=== PATIENT | male | born 1990 | race Caucasian/White ===

== ENCOUNTER 2023-03-05 07:34 | Emergency (ER) | payer OTHER ==
[2023-03-05 07:49] VITALS: TEMP 96.2
[2023-03-05] MEDS ORDERED: Sodium Chloride 0.9% 1000 ML 1,000 ML IV STA ×3 (08:12→10:56)
[2023-03-05] MEDS ORDERED: Zofran 4 MG/2 ML VIAL IV ONE (08:14)
[2023-03-05] MEDS ORDERED: Sodium Chloride 0.9% 1000 ML 1,000 ML ONE ×3 (08:17→10:55)
[2023-03-05] MEDS ORDERED: Zofran 4 MG/2 ML VIAL ONE (08:17)
--- NOTE | 2023-03-05 08:21 | ERPHSYRPT ---
- History of Present Illness Time Seen by Provider: 03/05/23 08:00 Source: patient Patient Subjective Stated Complaint: Pt states " I feel like crap. I am weak, I feel nauseus and I feel like I am on fire." Triage Nursing Assessment: Pt presented alert and oriented X 3, skin pwd. Pt ambulates with an upright steady gait. Pt arrived with an emesis bag with vomit in it. Pt in no apparent respiratory distress. Physician History: Patient is a 32-year-old male no significant past medical history presents to our ED for evaluation of nausea vomiting generalized weakness body aches that started approximately 2 days ago. Symptoms have been progressive. Symptoms are moderate in intensity. No specific worsening or improving factors. No associ ated pain. No obvious sick contacts. Patient up-to-date with all vaccinations. Patient voices no other complaints or concerns at this time. Portions of this note were created with voice recognition technology. There may be grammatical, spelling, punctuation or sound alike errors Timing/Duration: day(s) (2 days ago) Severity: moderate Modifying Factors: Improves With: nothing Associated Symptoms: nausea, loss of appetite, weakness, other (Generalized body aches), No abdominal pain, No shortness of breath, No rash Allergies/Adverse Reactions: ethinyl estradiol [From [facility] ()] Allergy (Verified 03/05/23 07:49) levonorgestrel [From [facility] ()] Allergy (Verified 03/05/23 07:49) Home Medications: Omeprazole 20 mg PO DAILY 03/05/23 [History] Sertraline HCl 50 mg [Zoloft 50 mg Tablet] 100 mg PO DAILY 03/05/23 [His tory] Hx Tetanus, Diphtheria Vaccination/Date Given: No Hx Influenza Vaccination/Date Given: No Hx Pneumococcal Vaccination/Date Given: No Immunizations Up to Date: No Travel Risk - International Travel Have you traveled outside of the country in past 3 weeks: No - Coronavirus Screening Are you exhibiting any of the following symptoms?: Yes Symptoms: Fever, Vomiting/Diarrhea, Headaches/Body Aches/Fatigue - Vaccine Status Have you recieved a Covid-19 vaccination: Yes 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 - Vaccination Dates Dates if Unknown: 2020 - Review of Systems Constitutional: No Symptoms, No Fever, No Chills Eyes: No Symptoms Ears, Nose, & Throat: No Symptoms Respiratory: No Symptoms, No Cough, No Dyspnea Cardiac: No Symptoms, No Chest Pain, No Edema, No Syncope Abdominal/Gastrointestinal: No Symptoms, No Abdominal Pain, No Nausea, No Vomiting, No Diarrhea Genitourinary Symptoms: No Symptoms, No Dysuria Musculoskeletal: No Symptoms, No Back Pain, No Neck Pain Skin: No Symptoms, No Rash Neurological: No Symptoms, No Dizziness, No Focal Weakness, No Sensory Changes Psychological: No Symptoms Endocrine: No Symptoms Hematologic/Lymphatic: No Symptoms Immunological/Allergic: No Symptoms All Other Systems: Reviewed and Negative - Past Medical History Pertinent Past Medical History: Yes GI Medical History: GERD Psycho-Social History: Depression, Other Other Medical History: PTSD - Past Surgical History Past Surgical History: No - Social History Smoking Status: Never smoker Exposure to second hand smoke: Yes Drug Use: none Patient Lives Alone: No - Nursing Vital Signs Nursing Vital Signs: Initial Vital Signs Temperature 96.2 F 03/05/23 07:42 Pulse Rate 124 H 03/05/23 07:42 Respiratory Rate 24 03/05/23 07:42 Blood Pressure 125/68 03/05/23 07:42 O2 Sat by Pulse Oximetry 95 03/05/23 07:42 Pain Scale Pain Intensity 0 - Physical Exam General Appearance: no apparent distress, alert Eye Exam: PERRL/EOMI, eyes nml inspection Ears, Nose, Throat Exam: normal ENT inspection, TMs normal, pharynx normal, moist mucous membranes Neck Exam: normal inspection, non-tender, supple, full range of motion Respiratory Exam: normal breath sounds, lungs clear, airway intact, No respiratory distress Cardiovascular Exam: regular rate/rhythm, normal heart sounds, normal peripheral pulses Gastrointestinal/Abdomen Exam: soft, normal bowel sounds, No tenderness, No mass Back Exam: normal inspection, normal range of motion, No CVA tenderness, No vertebral tenderness Extremity Exam: normal inspection, normal range of motion, pelvis stable Neurologic Exam: alert, oriented x 3, cooperative, normal mood/affect, nml c erebellar function, nml station & gait, sensation nml, No motor deficits Skin Exam: normal color, warm, dry, No rash Lymphatic Exam: No adenopathy SpO2 Interpretation: normal SpO2: 98 O2 Delivery: Room Air - Course Nursing assessment & vital signs reviewed: Yes EKG Interpreted by Me: RATE (120), Sinus Tach, NORMAL AXIS, prolonged QT interval (Borderline prolonged QT interval) - Radiology Exams Chest X-ray Interpretation: Teleradiologist Report (Chronic findings. No acute features) Ordered Tests: Active Orders 24 hr Category Date Time Status Plastics And Composites Inspector STAT Care 03/05/23 08:13 Active Clean Catch Urine Specimen STAT Care 03/05/23 14:21 Active EKG-ER Only STAT Care 03/05/23 08:12 Active IV Insertion STAT Care 03/05/23 08:12 Active Pulse Oximetry (ED) STAT Care 03/05/23 08:12 Active CHEST 1 VIEW (PORTABLE) Stat Exams 03/05/23 13:43 Completed BLOOD CULTURE Stat Lab 03/05/23 13:21 Received CBC W DIFF Stat Lab 03/05/23 08:50 Completed CMP Stat Lab 03/05/23 08:40 Completed CMP Stat Lab 03/05/23 14:35 Completed CULTURE,URINE Stat Lab 03/05/23 12:31 Received D-DIMER QUANTITATIVE Stat Lab 03/05/23 13:01 Completed Lactic Acid Stat Lab 03/05/23 14:20 Completed Lactic Acid Stat Lab 03/05/23 15:53 Ordered MAGNESIUM Stat Lab 03/05/23 08:40 Completed TROPONIN Q4H Lab 03/05/23 08:40 Completed TROPONIN Q4H Lab 03/05/23 12:08 Completed TROPONIN Q4H Lab 03/05/23 16:15 Ordered UA W/RFX UR CULTURE Stat Lab 03/05/23 12:31 Completed Urine Triage Profile Stat Lab 03/05/23 12:31 Completed Medication Summary Discontinued Medications Generic Name Dose Route Start Last Admin Trade Name Bobbyq PRN Reason Stop Dose Admin Sodium Chloride 1,000 mls @ 999 mls/hr 03/05/23 08:12 03/05/23 09:23 Sodium Chloride 0.9% 1000 Ml IV 03/05/23 09:12 Infused .Q1H1M STA Infusion Sodium Chloride Confirm 03/05/23 08:17 Sodium Chloride 0.9% 1000 Ml Administered 03/05/23 08:18 Dose 1,000 mls @ ud .ROUTE .STK-MED ONE Sodium Chloride 1,000 mls @ 999 mls/hr 03/05/23 09:25 03/05/23 10:37 Sodium Chloride 0.9% 1000 Ml IV 03/05/23 10:25 Infused .Q1H1M STA Infusion Sodium Chloride Confirm 03/05/23 09:26 Sodium Chloride 0.9% 1000 Ml Administered 03/05/23 09:27 Dose 1,000 mls @ ud .ROUTE .STK-MED ONE Sodium Chloride Confirm 03/05/23 10:55 Sodium Chloride 0.9% 1000 Ml Administered 03/05/23 10:56 Dose 1,000 mls @ ud .ROUTE .STK-MED ONE Sodium Chloride 1,000 mls @ 999 mls/hr 03/05/23 10:56 03/05/23 12:09 Sodium Chloride 0.9% 1000 Ml IV 03/05/23 11:56 Infused .Q1H1M STA Infusion Ondansetron HCl 4 mg 03/05/23 08:14 03/05/23 08:18 Ondansetron Hcl 4 Mg/2 Ml Vial IV 03/05/23 08:15 4 mg STAT ONE Administration Ondansetron HCl Confirm 03/05/23 08:17 Ondansetron Hcl 4 Mg/2 Ml Vial Administered 03/05/23 08:18 Dose 4 mg .ROUTE .STK-MED ONE Lab/Rad Data: Laboratory Result Diagrams 03/05/23 08:50 03/05/23 14:35 Laboratory Results 03/05/23 03/05/23 03/05/23 Range/Units 14:35 14:20 13:01 WBC (4.0-10.5) x10^3/uL RBC (4.1-5.6) x10^6/uL Hgb (12.5-18.0) g/dL Hct (42-50) % MCV (78-100) fL MCH (26-32) pg MCHC (32-36) g/dL RDW (11.5-14.0) % Plt Count (150-450) x10^3/uL MPV (7.5-11.0) fL Gran % (36.0-66.0) % Immature Gran % (Auto) (0.00-0.4) % Nucleat RBC Rel Count (0.00-0.1) % Eos # (Auto) (0-0.5) x10^3/uL Immature Gran # (Auto) (0.00-0.03) x10^3u/L Absolute Lymphs (auto) (1.0-4.6) x10^3/uL Absolute Monos (auto) (0.0-1.3) x10^3/uL Absolute Nucleated RBC (0.00-0.01) x10^3u/L Lymphocytes % (24.0-44.0) % Monocytes % (0.0-12.0) % Eosinophils % (0.00-5.0) % Basophils % (0.0-0.4) % Absolute Granulocytes (1.4-6.9) x10^3/uL Basophils # (0-0.4) x10^3/uL D-Dimer 0.24 (0.0-0.50) mg/L Sodium 132 L (137-145) mmol/L Potassium 4.6 D (3.5-5.1) mmol/L Chloride 102 (98-107) mmol/L Carbon Dioxide 21 L (22-30) mmol/L Anion Gap 13.9 (5-15) MEQ/L BUN 16 (9-20) mg/dL Creatinine 0.81 (0.66-1.25) mg/dL Estimated GFR 120.9 ML/MIN Glucose 121 H (74-106) mg/dL Lactic Acid 7.2 H (0.4-2.0) Calcium 8.5 (8.4-10.2) mg/dL Magnesium (1.6-2.3) mg/dL Total Bilirubin 0.30 (0.2-1.3) mg/dL AST 22 (17-59) U/L ALT 18 (0-50) U/L Alkaline Phosphatase 64 (38-126) U/L Troponin I (0.000-0.034) ng/mL Serum Total Protein 6.9 (6.3-8.2) g/dL Albumin 3.9 (3.5-5.0) g/dL Urine Color (Yellow) Urine Appearance (Clear) Urine pH (4.6-8.0) Ur Specific [place] (1.005-1.030) Urine Protein (Negative) Urine Glucose (UA) (Negative) mg/dL Urine Ketones (Negative) Urine Blood (Negative) Urine Nitrite (Negative) Urine Bilirubin (Negative) Urine Urobilinogen (0.2) mg/dL Ur Leukocyte Esterase (Negative) U Hyaline Cast (Auto) (0-2) /LPF Urine Microscopic RBC (0-5) /HPF Urine Microscopic WBC (0-5) /HPF Ur Epithelial Cells (None Seen) /HPF Urine Bacteria (None Seen) /HPF Urine Culture Reflexed (NO) Urine Opiates Level (NEGATIVE) Ur Methadone (NEGATIVE) Urine Barbiturates (NEGATIVE) Ur Phencyclidine (PCP) (NEGATIVE) Urine Amphetamine (NEGATIVE) U Benzodiazepine Level (NEGATIVE) Urine Cocaine (NEGATIVE) Urine Marijuana (THC) (NEGATIVE) Influenza Type A Ag (NEGATIVE) Influenza Type B Ag (NEGATIVE) RSV (PCR) (NEGATIVE) SARS-CoV-2 (PCR) (NEGATIVE) 03/05/23 03/05/23 03/05/23 Range/Units 12:31 12:31 12:08 WBC (4.0-10.5) x10^3/uL RBC (4.1-5.6) x10^6/uL Hgb (12.5-18.0) g/dL Hct (42-50) % MCV (78-100) fL MCH (26-32) pg MCHC (32-36) g/dL RDW (11.5-14.0) % Plt Count (150-450) x10^3/uL MPV (7.5-11.0) fL Gran % (36.0-66.0) % Immature Gran % (Auto) (0.00-0.4) % Nucleat RBC Rel Count (0.00-0.1) % Eos # (Auto) (0-0.5) x10^3/uL Immature Gran # (Auto) (0.00-0.03) x10^3u/L Absolute Lymphs (auto) (1.0-4.6) x10^3/uL Absolute Monos (auto) (0.0-1.3) x10^3/uL Absolute Nucleated RBC (0.00-0.01) x10^3u/L Lymphocytes % (24.0-44.0) % Monocytes % (0.0-12.0) % Eosinophils % (0.00-5.0) % Basophils % (0.0-0.4) % Absolute Granulocytes (1.4-6.9) x10^3/uL Basophils # (0-0.4) x10^3/uL D-Dimer (0.0-0.50) mg/L Sodium (137-145) mmol/L Potassium (3.5-5.1) mmol/L Chloride (98-107) mmol/L Carbon Dioxide (22-30) mmol/L Anion Gap (5-15) MEQ/L BUN (9-20) mg/dL Creatinine (0.66-1.25) mg/dL Estimated GFR ML/MIN Glucose (74-106) mg/dL Lactic Acid (0.4-2.0) Calcium (8.4-10.2) mg/dL Magnesium (1.6-2.3) mg/dL Total Bilirubin (0.2-1.3) mg/dL AST (17-59) U/L ALT (0-50) U/L Alkaline Phosphatase (38-126) U/L Troponin I < 0.012 (0.000-0.034) ng/mL Serum Total Protein (6.3-8.2) g/dL Albumin (3.5-5.0) g/dL Urine Color Yellow (Yellow) Urine Appearance Cloudy A (Clear) Urine pH 5.0 (4.6-8.0) Ur Specific [place] 1.025 (1.005-1.030) Urine Protein 30 (Negative) Urine Glucose (UA) Negative (Negative) mg/dL Urine Ketones Negative (Negative) Urine Blood Trace (Negative) Urine Nitrite Negative (Negative) Urine Bilirubin Negative (Negative) Urine Urobilinogen 0.2 (0.2) mg/dL Ur Leukocyte Esterase Negative (Negative) U Hyaline Cast (Auto) 0-2 (0-2) /LPF Urine Microscopic RBC 0-2 (0-5) /HPF Urine Microscopic WBC 3-5 (0-5) /HPF Ur Epithelial Cells Few (None Seen) /HPF Urine Bacteria Rare A (None Seen) /HPF Urine Culture Reflexed YES (NO) Urine Opiates Level NEGATIVE (NEGATIVE) Ur Methadone NEGATIVE (NEGATIVE) Urine Barbiturates NEGATIVE (NEGATIVE) Ur Phencyclidine (PCP) NEGATIVE (NEGATIVE) Urine Amphetamine NEGATIVE (NEGATIVE) U Benzodiazepine Level NEGATIVE (NEGATIVE) Urine Cocaine NEGATIVE (NEGATIVE) Urine Marijuana (THC) POSITIVE (NEGATIVE) Influenza Type A Ag (NEGATIVE) Influenza Type B Ag (NEGATIVE) RSV (PCR) (NEGATIVE) SARS-CoV-2 (PCR) (NEGATIVE) 11/11/1803/05/23 03/05/23 Range/Units 08:50 08:40 08:40 WBC 17.8 H (4.0-10.5) x10^3/uL RBC 4.29 (4.1-5.6) x10^6/uL Hgb 12.7 (12.5-18.0) g/dL Hct 39.3 L (42-50) % MCV 91.6 (78-100) fL MCH 29.6 (26-32) pg MCHC 32.3 (32-36) g/dL RDW 12.7 (11.5-14.0) % Plt Count 305 (150-450) x10^3/uL MPV 9.6 (7.5-11.0) fL Gran % 85.4 H (36.0-66.0) % Immature Gran % (Auto) 0.7 H (0.00-0.4) % Nucleat RBC Rel Count 0.0 (0.00-0.1) % Eos # (Auto) 0.02 (0-0.5) x10^3/uL Immature Gran # (Auto) 0.12 H (0.00-0.03) x10^3u/L Absolute Lymphs (auto) 1.38 (1.0-4.6) x10^3/uL Absolute Monos (auto) 1.01 (0.0-1.3) x10^3/uL Absolute Nucleated RBC 0.00 (0.00-0.01) x10^3u/L Lymphocytes % 7.8 L (24.0-44.0) % Monocytes % 5.7 (0.0-12.0) % Eosinophils % 0.1 (0.00-5.0) % Basophils % 0.3 (0.0-0.4) % Absolute Granulocytes 15.21 H (1.4-6.9) x10^3/uL Basophils # 0.05 (0-0.4) x10^3/uL D-Dimer (0.0-0.50) mg/L Sodium (137-145) mmol/L Potassium (3.5-5.1) mmol/L Chloride (98-107) mmol/L Carbon Dioxide (22-30) mmol/L Anion Gap (5-15) MEQ/L BUN (9-20) mg/dL Creatinine (0.66-1.25) mg/dL Estimated GFR ML/MIN Glucose (74-106) mg/dL Lactic Acid (0.4-2.0) Calcium (8.4-10.2) mg/dL Magnesium (1.6-2.3) mg/dL Total Bilirubin (0.2-1.3) mg/dL AST (17-59) U/L ALT (0-50) U/L Alkaline Phosphatase (38-126) U/L Troponin I < 0.012 (0.000-0.034) ng/mL Serum Total Protein (6.3-8.2) g/dL Albumin (3.5-5.0) g/dL Urine Color (Yellow) Urine Appearance (Clear) Urine pH (4.6-8.0) Ur Specific [place] (1.005-1.030) Urine Protein (Negative) Urine Glucose (UA) (Negative) mg/dL Urine Ketones (Negative) Urine Blood (Negative) Urine Nitrite (Negative) Urine Bilirubin (Negative) Urine Urobilinogen (0.2) mg/dL Ur Leukocyte Esterase (Negative) U Hyaline Cast (Auto) (0-2) /LPF Urine Microscopic RBC (0-5) /HPF Urine Microscopic WBC (0-5) /HPF Ur Epithelial Cells (None Seen) /HPF Urine Bacteria (None Seen) /HPF Urine Culture Reflexed (NO) Urine Opiates Level (NEGATIVE) Ur Methadone (NEGATIVE) Urine Barbiturates (NEGATIVE) Ur Phencyclidine (PCP) (NEGATIVE) Urine Amphetamine (NEGATIVE) U Benzodiazepine Level (NEGATIVE) Urine Cocaine (NEGATIVE) Urine Marijuana (THC) (NEGATIVE) Influenza Type A Ag NEGATIVE (NEGATIVE) Influenza Type B Ag NEGATIVE (NEGATIVE) RSV (PCR) NEGATIVE (NEGATIVE) SARS-CoV-2 (PCR) NEGATIVE (NEGATIVE) 03/05/23 Range/Units 08:40 WBC (4.0-10.5) x10^3/uL RBC (4.1-5.6) x10^6/uL Hgb (12.5-18.0) g/dL Hct (42-50) % MCV (78-100) fL MCH (26-32) pg MCHC (32-36) g/dL RDW (11.5-14.0) % Plt Count (150-450) x10^3/uL MPV (7.5-11.0) fL Gran % (36.0-66.0) % Immature Gran % (Auto) (0.00-0.4) % Nucleat RBC Rel Count (0.00-0.1) % Eos # (Auto) (0-0.5) x10^3/uL Immature Gran # (Auto) (0.00-0.03) x10^3u/L Absolute Lymphs (auto) (1.0-4.6) x10^3/uL Absolute Monos (auto) (0.0-1.3) x10^3/uL Absolute Nucleated RBC (0.00-0.01) x10^3u/L Lymphocytes % (24.0-44.0) % Monocytes % (0.0-12.0) % Eosinophils % (0.00-5.0) % Basophils % (0.0-0.4) % Absolute Granulocytes (1.4-6.9) x10^3/uL Basophils # (0-0.4) x10^3/uL D-Dimer (0.0-0.50) mg/L Sodium 134 L (137-145) mmol/L Potassium 3.5 (3.5-5.1) mmol/L Chloride 99 (98-107) mmol/L Carbon Dioxide 17 L (22-30) mmol/L Anion Gap 21.7 H (5-15) MEQ/L BUN 19 (9-20) mg/dL Creatinine 1.03 (0.66-1.25) mg/dL Estimated GFR 99.6 ML/MIN Glucose 215 H (74-106) mg/dL Lactic Acid (0.4-2.0) Calcium 9.3 (8.4-10.2) mg/dL Magnesium 1.9 (1.6-2.3) mg/dL Total Bilirubin 0.50 (0.2-1.3) mg/dL AST 21 (17-59) U/L ALT 22 (0-50) U/L Alkaline Phosphatase 85 (38-126) U/L Troponin I (0.000-0.034) ng/mL Serum Total Protein 8.1 (6.3-8.2) g/dL Albumin 4.6 (3.5-5.0) g/dL Urine Color (Yellow) Urine Appearance (Clear) Urine pH (4.6-8.0) Ur Specific [place] (1.005-1.030) Urine Protein (Negative) Urine Glucose (UA) (Negative) mg/dL Urine Ketones (Negative) Urine Blood (Negative) Urine Nitrite (Negative) Urine Bilirubin (Negative) Urine Urobilinogen (0.2) mg/dL Ur Leukocyte Esterase (Negative) U Hyaline Cast (Auto) (0-2) /LPF Urine Microscopic RBC (0-5) /HPF Urine Microscopic WBC (0-5) /HPF Ur Epithelial Cells (None Seen) /HPF Urine Bacteria (None Seen) /HPF Urine Culture Reflexed (NO) Urine Opiates Level (NEGATIVE) Ur Methadone (NEGATIVE) Urine Barbiturates (NEGATIVE) Ur Phencyclidine (PCP) (NEGATIVE) Urine Amphetamine (NEGATIVE) U Benzodiazepine Level (NEGATIVE) Urine Cocaine (NEGATIVE) Urine Marijuana (THC) (NEGATIVE) Influenza Type A Ag (NEGATIVE) Influenza Type B Ag (NEGATIVE) RSV (PCR) (NEGATIVE) SARS-CoV-2 (PCR) (NEGATIVE) - Progress Progress: improved Progress Note: Patient is a six 32-year-old male presents to our ED for evaluation of nausea vomiting generalized body aches. Symptoms started approximately 2 to 3 days ago. Physical exam otherwise unremarkable. EKG was sinus tachycardia. Chest x-ray such and unremarkable. No acute findings. CBC reveals leukocytosis of 17.8. No clear origin for the chest pain. No fever. We obtained cultures to further look into this leukocytosis versus being infectious or reactive. Blood culture pending. CMP repeated. Anion gap normalized. COVID testing negative. D-dimer negative. Lactic acid ordered. Initial lactic acid blood sample was old. They repeated it with a fresh sample and lactic acid revealed to be normal. [place]nes[place] 1.9. Troponin negative. Urinalysis negative for urinary tract infection. Urine triage positive for marijuana use. Patient received 3 L normal saline and Zofran. Patient reassessed. He is feeling well. Patient sitting up conversant well-appearing no distress. Patient eating food and stating he is ready for discharge. Patient was tachycardic in the high 120s upo n arrival. Heart rate down to 108. No indication for further work-up at this time. Will discharge home. Vital stable. Portions of this note were created with voice recognition technology. There may be grammatical, spelling, punctuation or sound alike errors Complexity of problems addressed is moderate acute complicated No critical care time Complex of data reviewed and analyzed is moderate. Test ordered test reviewed. Results analyzed and clinically correlated with history and physical exam. Risk of complication and a risk of morbidity/mortality of patient management is moderate. Patient be discharged home. Vital stable. Time spent to discharge patient approximately 20 minutes. Plan of care established for shared decision making. No social determinants of health present impede follow-up. Portions of this note were created with voice recognition technology. There may be grammatical, spelling, punctuation or sound alike errors 03/05/23 15:56 Counseled pt/family regarding: lab results, diagnosis, need for follow-up, rad results - Departure Departure Disposition: Home Clinical Impression: Generalized weakness, Nausea & vomiting, Dehydration, Sinus tachycardia Condition: Stable Critical Care Time: No Referrals: GARRETT GOODSON DO [Primary Care Provider] - Follow up/PCP as directed Additional Instructions: Discharge/Care Plan SALLY ALEGRIA JOHNNY was seen on 03/05/23 in the Emergency Room. The patient was counseled regarding Diagnosis,Lab results, Imaging studies, need for follow up and when to return to the Emergency Room. Prescriptions given: Discharge Note I have spoken with the patient and/or caregivers. I have explained the patient's condition, diagnosis and treatment plan based on the information available to me at this time. I have answered the patient's and/or caregiver's questions and addressed any concerns. The patient and/or caregivers have as good understanding of the patient's diagnosis, condition and treatment plan as can be expected at this point. The vital signs have been stable. The patient's condition is stable and appropriate for discharge from the emergency department. The patient will pursue further outpatient evaluation with the primary care physician or other designated or consulting physician as outlined in the discharge instructions. The patient and/or caregivers are agreeable to this plan of care and follow-up instructions have been explained in detail. The patient and/or caregivers have received these instruction. The patient/and or caregivers are aware that any significant change in condition or worsening of symptoms should prompt an immediate return to this or the closest emergency department or call 911.
[2023-03-05 08:56] LABS: Absolute Neutrophil Ct (ANC) 15.21 x10^3/uL (1.4-6.9); BASOPHIL % 0.3 % (0.0-0.4); Basophil (Absolute #) 0.05 x10^3/uL (0-0.4); Eosinophil % 0.1 % (0.00-5.0); Eosinophil (Absolute #) 0.02 x10^3/uL (0-0.5); Hematocrit 39.3 % (42-50); Hemoglobin 12.7 g/dL (12.5-18.0); IMMATURE GRAN # 0.12 x10^3u/L (0.00-0.03); IMMATURE GRAN % 0.7 % (0.00-0.4); Lymphocyte (Absolute #) 1.38 x10^3/uL (1.0-4.6); Lymphocytes % 7.8 % (24.0-44.0); Mean Cell Volume 91.6 fL (78-100); Mean Corpuscular Hemoglobin 29.6 pg (26-32); Mean Corpuscular Hgb Concent. 32.3 g/dL (32-36); Mean Platelet Volume 9.6 fL (7.5-11.0); Monocyte (Absolute #) 1.01 x10^3/uL (0.0-1.3); Monocytes % 5.7 % (0.0-12.0); Neutrophil % 85.4 % (36.0-66.0); Platelet Count 305 x10^3/uL (150-450); Red Blood Count 4.29 x10^6/uL (4.1-5.6); Red Cell Distribution Width 12.7 % (11.5-14.0); White Blood Count 17.8 x10^3/uL (4.0-10.5)
[2023-03-05 08:57] LABS: ALBUMIN 4.6 g/dL (3.5-5.0); ANION GAP 21.7 MEQ/L (5-15); BILIRUBIN,TOTAL 0.5 mg/dL (0.2-1.3); Calcium 9.3 mg/dL (8.4-10.2); Creatinine 1 1.03 mg/dL (0.66-1.25); EST GLOMERULAR FILTRATION RATE 99.6 ML/MIN; MAGNESIUM 1.9 mg/dL (1.6-2.3); Potassium 3.5 mmol/L (3.5-5.1); Total Protein 8.1 g/dL (6.3-8.2)
[2023-03-05 09:22] LABS: INFLUENZA A NEGATIVE (NEGATIVE); INFLUENZA B NEGATIVE (NEGATIVE); RESPIRATORY SYNCTIAL VIRUS NEGATIVE (NEGATIVE); SARS-CoV-2 Xpert Express NEGATIVE (NEGATIVE)
[2023-03-05 12:52] LABS: Appearance Cloudy (Clear); Bilirubin Negative (Negative); Blood Trace (Negative); Epithelial Cells Few /HPF (None Seen); Glucose, Urine Negative (Negative); Ketones Negative (Negative); Leukocyte Esterase Negative (Negative); Nitrite Negative (Negative); Protein,Urine Dip 30 (Negative); RBC 0-2 /HPF (0-5); Specific Gravity 1.025 (1.005-1.030); Urobilinogen 0.2 mg/dL (0.2)
[2023-03-05 12:53] LABS: ADD URINE CULTURE? YES (NO); Bacteria Rare /HPF (None Seen); Hyaline Casts 0-2 /LPF (0-2)
--- NOTE | 2023-03-05 14:16 | XRAY ---
Indication: Tachycardia. Comparison: None Portable chest demonstrates minimal left base subsegmental atelectasis/scarring. Remaining heart and lungs unremarkable. Bony thorax intact.
[2023-03-05 14:45] LABS: Amphetamine,Urine NEGATIVE (NEGATIVE); Barbiturate,Urine NEGATIVE (NEGATIVE); Benzodiazepine,Urine NEGATIVE (NEGATIVE); Cocaine,Urine NEGATIVE (NEGATIVE); Methadone,Urine NEGATIVE (NEGATIVE); Opiate,Urine NEGATIVE (NEGATIVE); PCP,Urine NEGATIVE (NEGATIVE); THC,Urine POSITIVE (NEGATIVE)
[2023-03-05 14:58] LABS: ALBUMIN 3.9 g/dL (3.5-5.0); ANION GAP 13.9 MEQ/L (5-15); BILIRUBIN,TOTAL 0.3 mg/dL (0.2-1.3); Calcium 8.5 mg/dL (8.4-10.2); Creatinine 1 0.81 mg/dL (0.66-1.25); EST GLOMERULAR FILTRATION RATE 120.9 ML/MIN; Total Protein 6.9 g/dL (6.3-8.2)
[2023-03-05 15:00] LABS: Potassium 4.6 mmol/L (3.5-5.1)
[2023-03-05 15:37] VITALS: O2SAT 98
[2023-03-05 15:53] VITALS: BP 118/72; PULSE 117; RESP 25
== END 2023-03-05 16:09 | disposition home or self-care (01) ==
LOC: ED 07:34
DX: R53.1 Weakness (principal); R11.2 Nausea with vomiting, unspecified; E86.0 Dehydration; R00.0 Tachycardia, unspecified; M79.10 Myalgia, unspecified site; Z79.899 Other long term (current) drug therapy
CPT/HCPCS: 0241U; 36000; 36415; 71045; 80053; 80307; 81001; 83605; 83735; 84484; 85025; 85379; 87040; 87086; 93005; 93041; 94760; 96360; 96361; 96374; 99285; J2405

== ENCOUNTER 2024-02-10 04:24 | Emergency (ER) | payer OTHER ==
[2024-02-10 04:39] VITALS: TEMP 97
--- NOTE | 2024-02-10 05:01 | ERPHSYRPT ---
- History of Present Illness Historian: patient, family Exam Limitations: no limitations Patient Subjective Stated Complaint: Left flank pain that started 3 hours ago. Nauseated since arrived to ED. Triage Nursing Assessment: Patient presents with left flank pain that started around 0130 today. Stated that he attempted to take 2 gas relief tabs and did not help. No trouble with urination. Denies any diarrhea or constipation. [place] nauseated once getting here to the ED. Timing/Duration: today Activities at Onset: none Quality: burning, cramping, pressure, sharpness Abdominal Pain Onset Location: LUQ, flank Pain Radiation: back Severity of Pain-Max: moderate Severity of Pain-Current: moderate Modifying Factors: Improves With: nothing Associated Symptoms: back, nausea Previous symptoms: no prior history Hx Tetanus, Diphtheria Vaccination/Date Given: Yes Hx Influenza Vaccination/Date Given: No Hx Pneumococcal Vaccination/Date Given: No Immunizations Up to Date: Yes <MATT DANIELSON - Last Filed: 02/10/24 06:33> <FLAKO LENTZ - Last Filed: 02/10/24 07:42> - History of Present Illness Time Seen by Provider: 02/10/24 04:52 Physician History: Pt noted onset of left flank pain radiating to back at 0130 today also with some nausea - no vomiting. He denies heart problems or prior episodes . Not short of breath but is post cpovid with a persisting cough. No prior DVT or PE and no recent hosp or surgeries. But does have some hormonal Tx. Discussed risks/benefits of testing /Tx including pain meds, IV, CBC, CMP, Lactate, Lipase, AMylase, UA, Trop EKG, CT, CXR, BNP , D DImer , And pt wishes to proceed with all except pain meds/IV. SO the rest are ordered. Results discussed chest clear Ht reg without M 'Normal mental status and neuro exam. Calves nontender without swelling or erythema no edema. Abd slightly tender LUQ/flank, otherwise nontender and no peritoneal signs or masses or distension. (MATT DANIELSON) Allergies/Adverse Reactions: ethinyl estradiol [From [facility] (91)] Allergy (Verified 03/05/23 07:49) levonorgestrel [From [facility] (91)] Allergy (Verified 03/05/23 07:49) Home Medications: Omeprazole 20 mg PO DAILY 03/05/23 [History] Sertraline HCl 50 mg [Zoloft 50 mg Tablet] 100 mg PO DAILY 03/05/23 [History] Atorvastatin Calcium [Lipitor 20MG Tablet] 20 mg PO HS 02/10/24 [History] Spironolactone [Aldactone] 50 mg PO BID 02/10/24 [History] estradioL [Estradiol] 4 mg PO BID 02/10/24 [History] Travel Risk - International Travel Have you traveled outside of the country in past 3 weeks: No - Emerging Infectious Disease Are you exhibiting symptoms associated with any current EIDs: No <MATT DANIELSON - Last Filed: 02/10/24 06:33> - Review of Systems Constitutional: No Fever, No Chills Eyes: No Symptoms Ears, Nose, & Throat: No Symptoms Respiratory: Cough, No Dyspnea Cardiac: No Chest Pain, No Edema, No Syncope Abdominal/Gastrointestinal: Nausea, No Abdominal Pain, No Vomiting, No Diarrhea Genitourinary Symptoms: Flank Pain, No Dysuria Musculoskeletal: No Back Pain, No Neck Pain Skin: No Rash Neurological: No Dizziness, No Focal Weakness, No Sensory Changes Psychological: No Symptoms Endocrine: No Symptoms Hematologic/Lymphatic: No Symptoms Immunological/Allergic: No Symptoms All Other Systems: Reviewed and Negative <MATT DANIELSON - Last Filed: 02/10/24 06:33> - Past Medical History Pertinent Past Medical History: Yes Respiratory History: Asthma GI Medical History: GERD Psycho-Social History: Depression, Other Other Medical History: PTSD - Past Surgical History Past Surgical History: No - Social History Smoking Status: Never smoker Exposure to second hand smoke: Yes Drug Use: other Patient Lives Alone: No - Social Determinants of Health Will the patient participate in the screening: Yes Do you worry about a steady place to live?: No Do you have any problems with any of the following?: No known problems In the past 12 months,have you had to go without utilities?: No Transportation Issues: Yes Has anyone in your support network made you feel unsafe?: No Have you or anyone in your house had to go without enough: No <MATT DANIELSON - Last Filed: 02/10/24 06:33> - Physical Exam General Appearance: no apparent distress, alert Eye Exam: PERRL/EOMI, eyes nml inspection Ears, Nose, Throat Exam: normal ENT inspection, pharynx normal, moist mucous membranes Neck Exam: normal inspection, non-tender, supple, full range of motion Respiratory Exam: normal breath sounds, lungs clear, No respiratory distress Cardiovascular Exam: regular rate/rhythm, normal heart sounds Gastrointestinal/Abdomen Exam: soft, No tenderness, No mass Rectal Exam: deferred Back Exam: normal inspection, normal range of motion, No CVA tenderness, No vertebral tenderness Extremity Exam: normal inspection, normal range of motion, pelvis stable Neurologic Exam: alert, oriented x 3, cooperative, normal mood/affect, nml cerebellar function, sensation nml, No motor deficits Skin Exam: normal color, warm, dry SpO2 Interpretation: normal SpO2: 98 O2 Delivery: Room Air <MATT DANIELSON - Last Filed: 02/10/24 06:33> - Nursing Vital Signs Nursing Vital Signs: Initial Vital Signs Temperature 97.0 F 02/10/24 04:25 Pulse Rate 94 H 02/10/24 04:25 Respiratory Rate 20 02/10/24 04:25 Blood Pressure 154/105 02/10/24 04:25 O2 Sat by Pulse Oximetry 98 02/10/24 04:25 Pain Scale Pain Intensity 6 - Course Nursing assessment & vital signs reviewed: Yes EKG Interpreted by Me: Sinus Rhythm, NORMAL AXIS, NORMAL INTERVALS, NORMAL QRS, NORMAL ST-T - Radiology Exams Chest X-ray Interpretation: Interpreted by me, No Pneumothorax, Infiltrates (bilateral interstitial SP COvid) <MATT DANIELSON - Last Filed: 02/10/24 06:33> Ordered Tests: Active Orders 24 hr Category Date Time Status EKG-ER Only STAT Care 02/10/24 05:01 Active Strain Urine .as ordered Care 02/10/24 06:54 Active ABDOMEN AND PELVIS W/0 CONTRAS [CT] Stat Exams 02/10/24 05:03 Completed CHEST 1 VIEW (PORTABLE) Stat Exams 02/10/24 05:02 Taken AMYLASE Stat Lab 02/10/24 05:30 Completed CBC W DIFF Stat Lab 02/10/24 05:30 Completed CMP Stat Lab 02/10/24 05:30 Completed CULTURE,URINE Stat Lab 02/10/24 05:02 Received D-DIMER QUANTITATIVE Stat Lab 02/10/24 05:30 Completed LIPASE Stat Lab 02/10/24 05:30 Completed Lactic Acid Stat Lab 02/10/24 05:27 Completed NT PRO BNPII Stat Lab 02/10/24 05:30 Completed TROPONIN Q4H Lab 02/10/24 05:30 Completed TROPONIN Q4H Lab 02/10/24 09:15 Ordered TROPONIN Q4H Lab 02/10/24 13:15 Ordered UA W/RFX UR CULTURE Stat Lab 02/10/24 05:02 Completed Medication Summary Discontinued Medications Generic Name Dose Route Start Last Admin Trade Name Sandip PRN Reason Stop Dose Admin Ketorolac Tromethamine 60 mg 02/10/24 05:51 02/10/24 05:54 Ketorolac Tromethamine 30 Mg/Ml Inj IM 02/10/24 05:52 60 mg STAT ONE Administration Ketorolac Tromethamine Confirm 02/10/24 05:53 Ketorolac Tromethamine 30 Mg/Ml Inj Administered 02/10/24 05:54 Dose 30 mg .ROUTE .STK-MED ONE Ketorolac Tromethamine Confirm 02/10/24 05:54 Ketorolac Tromethamine 30 Mg/Ml Inj Administered 02/10/24 05:55 Dose 30 mg .ROUTE .STK-MED ONE Ondansetron HCl 4 mg 02/10/24 05:01 02/10/24 05:06 Zofran 4 Mg/Udtablet Orally Disintegrating PO 02/10/24 05:02 4 mg STAT ONE Administration Ondansetron HCl Confirm 02/10/24 05:06 Zofran 4 Mg/Udtablet Orally Disintegrating Administered 02/10/24 05:07 Dose 4 mg .ROUTE .STK-MED ONE Lab/Rad Data: Laboratory Result Diagrams 02/10/24 05:30 02/10/24 05:30 Laboratory Results 02/10/24 02/10/24 02/10/24 Range/Units 05:30 05:30 05:30 WBC (4.23-9.07) x10^3/uL RBC (4.63-6.08) x10^6/uL Hgb (13.7-17.5) g/dL Hct (40.1-51.0) % MCV (79.0-92.2) fL MCH (25.7-32.2) pg MCHC (32.3-36.5) g/dL RDW (11.6-14.4) % Plt Count (163-337) x10^3/uL MPV (9.4-12.4) fL Gran % (34.0-67.9) % Immature Gran % (Auto) (0.001-0.429) % Nucleat RBC Rel Count (0.00-0.2) % Eos # (Auto) (0.04-0.54) x10^3/uL Immature Gran # (Auto) (0.001-0.031) x10^3u/L Absolute Lymphs (auto) (1.32-3.57) x10^3/uL Absolute Monos (auto) (0.30-0.82) x10^3/uL Absolute Nucleated RBC (0.00-0.012) x10^3u/L Lymphocytes % (21.8-53.1) % Monocytes % (5.3-12.2) % Eosinophils % (0.8-7.0) % Basophils % (0.2-1.2) % Absolute Granulocytes (1.78-5.38) x10^3/uL Basophils # (0.01-0.08) x10^3/uL D-Dimer 0.38 (0.0-0.50) mg/L Sodium 138 (135-145) mmol/L Potassium 4.7 (3.5-5.1) mmol/L Chloride 102 (98-107) mmol/L Carbon Dioxide 28 (22-30) mmol/L Anion Gap 13.0 (5-15) MEQ/L BUN 17 (9-20) mg/dL Creatinine 1.21 (0.66-1.25) mg/dL Estimated GFR 81.6 ML/MIN Glucose 116 H (74-106) mg/dL Lactic Acid (0.4-2.0) Calcium 9.4 (8.4-10.2) mg/dL Total Bilirubin 0.30 (0.2-1.3) mg/dL AST 20 (17-59) U/L ALT 17 (0-50) U/L Alkaline Phosphatase 76 (38-126) U/L Troponin I < 0.012 (0.000-0.033) ng/mL NT-Pro-B Natriuret Pep 77.6 (<300) pg/mL Serum Total Protein 6.8 (6.3-8.2) g/dL Albumin 4.0 (3.5-5.0) g/dL Amylase 85 (30-110) U/L Lipase 78 (23-300) U/L Urine Color (Yellow) Urine Appearance (Clear) Urine pH (4.6-8.0) Ur Specific [place] (1.005-1.030) Urine Protein (Negative) Urine Glucose (UA) (Negative) mg/dL Urine Ketones (Negative) Urine Blood (Negative) Urine Nitrite (Negative) Urine Bilirubin (Negative) Urine Urobilinogen (0.2) mg/dL Ur Leukocyte Esterase (Negative) U Hyaline Cast (Auto) (0-2) /LPF Urine Microscopic RBC (0-5) /HPF Urine Microscopic WBC (0-5) /HPF Ur Epithelial Cells (None Seen) /HPF Urine Bacteria (None Seen) /HPF Urine Culture Reflexed (NO) 02/10/24 02/10/24 02/10/24 Range/Units 05:30 05:27 05:02 WBC 9.2 H (4.23-9.07) x10^3/uL RBC 4.00 L (4.63-6.08) x10^6/uL Hgb 12.0 L (13.7-17.5) g/dL Hct 35.9 L (40.1-51.0) % MCV 89.8 (79.0-92.2) fL MCH 30.0 (25.7-32.2) pg MCHC 33.4 (32.3-36.5) g/dL RDW 12.7 (11.6-14.4) % Plt Count 240 (163-337) x10^3/uL MPV 9.5 (9.4-12.4) fL Gran % 66.8 (34.0-67.9) % Immature Gran % (Auto) 0.4 (0.001-0.429) % Nucleat RBC Rel Count 0.0 (0.00-0.2) % Eos # (Auto) 0.20 (0.04-0.54) x10^3/uL Immature Gran # (Auto) 0.04 H (0.001-0.031) x10^3u/L Absolute Lymphs (auto) 2.13 (1.32-3.57) x10^3/uL Absolute Monos (auto) 0.65 (0.30-0.82) x10^3/uL Absolute Nucleated RBC 0.00 (0.00-0.012) x10^3u/L Lymphocytes % 23.2 (21.8-53.1) % Monocytes % 7.1 (5.3-12.2) % Eosinophils % 2.2 (0.8-7.0) % Basophils % 0.3 (0.2-1.2) % Absolute Granulocytes 6.14 H (1.78-5.38) x10^3/uL Basophils # 0.03 (0.01-0.08) x10^3/uL D-Dimer (0.0-0.50) mg/L Sodium (135-145) mmol/L Potassium (3.5-5.1) mmol/L Chloride (98-107) mmol/L Carbon Dioxide (22-30) mmol/L Anion Gap (5-15) MEQ/L BUN (9-20) mg/dL Creatinine (0.66-1.25) mg/dL Estimated GFR ML/MIN Glucose (74-106) mg/dL Lactic Acid 1.5 (0.4-2.0) Calcium (8.4-10.2) mg/dL Total Bilirubin (0.2-1.3) mg/dL AST (17-59) U/L ALT (0-50) U/L Alkaline Phosphatase (38-126) U/L Troponin I (0.000-0.033) ng/mL NT-Pro-B Natriuret Pep (<300) pg/mL Serum Total Protein (6.3-8.2) g/dL Albumin (3.5-5.0) g/dL Amylase (30-110) U/L Lipase (23-300) U/L Urine Color Yellow (Yellow) Urine Appearance Clear (Clear) Urine pH 5.0 (4.6-8.0) Ur Specific [place] 1.020 (1.005-1.030) Urine Protein Trace A (Negative) Urine Glucose (UA) Negative (Negative) mg/dL Urine Ketones Trace A (Negative) Urine Blood Large A (Negative) Urine Nitrite Negative (Negative) Urine Bilirubin Negative (Negative) Urine Urobilinogen 0.2 (0.2) mg/dL Ur Leukocyte Esterase Trace A (Negative) U Hyaline Cast (Auto) NONE SEEN (0-2) /LPF Urine Microscopic RBC 11-20 A (0-5) /HPF Urine Microscopic WBC 0-2 (0-5) /HPF Ur Epithelial Cells None Seen (None Seen) /HPF Urine Bacteria None Seen (None Seen) /HPF Urine Culture Reflexed YES (NO) - Progress Progress: improved, re-examined Counseled pt/family regarding: lab results, diagnosis, need for follow-up, rad results <MATT DANIELSON - Last Filed: 02/10/24 06:33> - Progress Progress Note: 02/10/24 05:52 pt changed his mind and chooses to try toradol now so this is ordered. 02/10/24 06:23 Discussed with pt the limitations of testing and eval performed and that although kidney stones are found as a cause for his symptoms additional undetected pathology could still be evolving including cardiac, vascular, abdominal or other potentially serious conditions. He voices understanding and prefers outpt f/u to continue workup with PMDs rather than further eval / obs in hosp/ER and has the capacity to make this choice. 02/10/24 06:31 Pt is aware of his slight anemia and is following with his PMDs for this. 02/10/24 06:38 02/10/24 06:50 THe pt is just now able to give UA and this test is remaining to determine if antibiotics would be indicated. THe pt is turned over to Dr. Lentz at change of shift for the final disposition pending that result. (MATT DANIELSON) Medical Desision Making - Discussion of managment Reviewed:: Test results, Need for additional workup Agreed on:: Treatment plan, need for follow-up - Diagnostic Testing Diagnostic test were ordered, analyzed, and reviewed by me: Yes Radiological Interpretation: Interpreted by me, Reviewed by me, Teleradiologist Report - Risk of complications The pt has a mod risk of morbidity or mortality based on: Need for prescription drug management The pt has a high risk of morbidity or mortality based on: Decision regarding hospitilization or escalation of hosp level of care <MATT DANIELSON - Last Filed: 02/10/24 06:33> - Risk of complications Minimal Risk: Minimal risk of morbidity <FLAKO LENTZ Last Filed: 02/10/24 07:42> - Departure Critical Care Time: No <DANIELSONMATT - Last Filed: 02/10/24 06:33> - Departure Departure Disposition: Home <FLAKO LENTZ - Last Filed: 02/10/24 07:42> - Departure Clinical Impression: Left flank pain, Renal calculus, left, Hydronephrosis Condition: Good Referrals: GARRETT GOODSON DO [Primary Care Provider] - Follow up/PCP as directed Instructions: Kidney stones in adults, Flank Pain Additional Instructions: followup your elevated blood pressure and kidney stone with your Dr. for further workup and Urology f/u MADHURI since one of these stones is large and may need intervention to pass and there is some degree of hydronephrosis indicating some blockage by stones . Return meantime if not improving, increased pain, fever, vomiting, dizziness, short of breath chest pain or any other symptoms of concern. use urine strainer for stones. Prescriptions: Tamsulosin HCl 0.4 mg [Flomax 0.4 MG] 0.4 mg PO DAILY #14 cap
[2024-02-10] MEDS: ZOFRAN ODT 4 MG PO ONE (05:06)
[2024-02-10] MEDS ORDERED: ZOFRAN ODT 4 MG ONE (05:06)
[2024-02-10 05:31] LABS: Absolute Neutrophil Ct (ANC) 6.14 x10^3/uL (1.78-5.38); BASOPHIL % 0.3 % (0.2-1.2); Basophil (Absolute #) 0.03 x10^3/uL (0.01-0.08); Eosinophil % 2.2 % (0.8-7.0); Hematocrit 35.9 % (40.1-51.0); IMMATURE GRAN # 0.04 x10^3u/L (0.001-0.031); IMMATURE GRAN % 0.4 % (0.001-0.429); Lymphocyte (Absolute #) 2.13 x10^3/uL (1.32-3.57); Lymphocytes % 23.2 % (21.8-53.1); Mean Cell Volume 89.8 fL (79.0-92.2); Mean Corpuscular Hgb Concent. 33.4 g/dL (32.3-36.5); Mean Platelet Volume 9.5 fL (9.4-12.4); Monocyte (Absolute #) 0.65 x10^3/uL (0.30-0.82); Monocytes % 7.1 % (5.3-12.2); Neutrophil % 66.8 % (34.0-67.9); Platelet Count 240 x10^3/uL (163-337); Red Cell Distribution Width 12.7 % (11.6-14.4); White Blood Count 9.2 x10^3/uL (4.23-9.07)
[2024-02-10 05:51] LABS: BILIRUBIN,TOTAL 0.3 mg/dL (0.2-1.3); Calcium 9.4 mg/dL (8.4-10.2); Creatinine 1 1.21 mg/dL (0.66-1.25); EST GLOMERULAR FILTRATION RATE 81.6 ML/MIN; Potassium 4.7 mmol/L (3.5-5.1); Total Protein 6.8 g/dL (6.3-8.2)
[2024-02-10] MEDS ORDERED: TORAdol 30 mg Injection ONE ×2 (05:53→05:54)
[2024-02-10] MEDS: TORAdol 30 mg Injection IM ONE (05:54)
[2024-02-10 05:56] LABS: NT PRO BNPII 77.6 pg/mL (<300); TROPONIN < 0.012 ng/mL (0.000-0.033)
--- NOTE | 2024-02-10 06:34 | XRAY ---
CLINICAL HISTORY: left flank pain COMPARISON: No prior studies are available for comparison. TECHNIQUE: Non-contrast CT of the abdomen and pelvis was performed, with the following protocol: axial images, and reconstructed coronal and sagittal images. One of the following dose reduction techniques was utilized for this exam: Automated exposure control, adjustment of the mA and/or kV according to patient size, and use of iterative reconstruction. FINDINGS: Abdomen: Liver: Enlarged in size, 23 cm in right lobe span, shape, and density. No focal lesions, cysts, or masses were identified. Gallbladder and Biliary System: The gallbladder is normal in size and shape. No wall thickening, pericholecystic fluid, or gallstones were identified. Pancreas: Pancreatic head, body, and tail are visualized and appear normal in size and density. No pancreatic masses or calcifications were noted. Spleen: Normal in size, shape, and density. No splenic lesions or masses were identified. Kidneys and Adrenal Glands: The left pelvic ureteric junction shows a small dense rounded stone of 9.5 mm in CC dimension. Mild left-sided pelvicalyceal system dilatation is seen. A left upper calyceal small stone is seen as 3 mm in size. Both kidneys are normal in size, shape, and position. Cortical thickness is within normal limits. Adrenal glands are unremarkable. No evidence of acute appendicitis. Abdominal Aorta and Vessels: The abdominal aorta and major branches are patent without evidence of an aneurysm or significant atherosclerosis. Pelvis: Urinary Bladder: Normal in contour and wall thickness. No intraluminal lesions. Prostate: course prostatic calcifications noted. Seminal Vesicles: Normal appearance without abnormal enlargement or mass. Peritoneal and Retroperitoneal Structures: No free fluid or abnormal fluid collections were identified within the abdomen or pelvis. No lymphadenopathy was noted. Bowel: The visualized bowel loops are normal in caliber and appearance. No evidence of bowel obstruction or wall thickening. Bones and Soft Tissues: Pelvic bones and soft tissues are unremarkable. No fractures or abnormal masses were identified. Bilateral fat-containing inguinal hernia. IMPRESSION: 1. Obstructing stone is seen in the left-sided pelvic-ureteric junction (measuring 9.5 mm in CC dimension) with mild hydronephrosis. 2. Another 3 mm stone is seen in the left renal upper calyx. 3. Hepatomegaly. 4. Overall, non-contrast CT abdomen and pelvis demonstrate normal findings without evidence of acute intra-abdominal pathology. [facility] ER was called at [phone] at 05:17 AM [employer]OMEN [employer]ER, 02/10/2024 and Nurse Alexa was informed regarding the presence of significant medical findings in the report. Electronically Signed by: Tejal Morse MD. (02/10/2024 06:30:12 EDT)
[2024-02-10 07:07] LABS: Appearance Clear (Clear); Bacteria None Seen /HPF (None Seen); Bilirubin Negative (Negative); Blood Large (Negative); Epithelial Cells None Seen /HPF (None Seen); Glucose, Urine Negative (Negative); Hyaline Casts NONE SEEN /LPF (0-2); Ketones Trace (Negative); Leukocyte Esterase Trace (Negative); Nitrite Negative (Negative); Protein,Urine Dip Trace (Negative); Urobilinogen 0.2 mg/dL (0.2); WBC 0-2 /HPF (0-5)
[2024-02-10 08:31] VITALS: BP 121/65; PULSE 90; RESP 18; O2SAT 96
--- NOTE | 2024-02-10 08:41 | XRAY ---
Indication: Left chest pain. Comparison: March 05, 2024 Portable apical lordotic chest demonstrates new overlying grid artifact. No focal infiltrate, consolidation, or large effusion. Heart not enlarged. Bony thorax intact. Impression: Nonacute limited chest.
== END 2024-02-10 08:35 | disposition home or self-care (01) ==
LOC: ED 04:24
DX: N13.2 Hydronephrosis with renal and ureteral calculous obstruction (principal); R10.9 Unspecified abdominal pain; R11.0 Nausea; Z79.899 Other long term (current) drug therapy; Z59.82 Transportation insecurity
CPT/HCPCS: 36415; 71045; 74176; 80053; 81001; 82150; 83605; 83690; 83880; 84484; 85025; 85379; 87086; 93005; 96372; 99284; J1885; Q0162

== ENCOUNTER 2024-03-20 09:05 | Emergency (ER) | payer OTHER ==
--- NOTE | 2024-03-20 09:18 | ERPHSYRPT ---
- History of Present Illness Time Seen by Provider: 03/20/24 09:17 Historian: patient, family Exam Limitations: no limitations Physician History: This is a morbidly obese 33-year-old white male patient of Dr. Goodson who was known to have a very large left side ureteral stone. 3 days ago, the patient underwent a lithotripsy without stent placement in [facility] by Dr. Reynolds. Patient was prescribed outpatient [place] which controlled the patient's mild left flank pain. However this morning, despite taking 1 tablet an hour prior to arrival, the patient was having severe left flank pain. Patient arrives with left flank pain measured 10 out of a 10 on pain scale. Patient has a history gastroesophageal reflux disease, depression, hyperlipidemia, PTSD and asthma. Timing/Duration: today Activities at Onset: none Quality: sharpness, stabbing Abdominal Pain Onset Location: flank (Left side) Pain Radiation: no radiation Severity of Pain-Max: moderate Severity of Pain-Current: moderate Modifying Factors: Improves With: nothing Associated Symptoms: nausea, No vomiting Previous symptoms: same symptoms as today, recently seen, recently treated Allergies/Adverse Reactions: No Known Drug Allergies Allergy (Verified 03/20/24 09:20) Home Medications: Omeprazole 20 mg PO DAILY 03/05/23 [History] Sertraline HCl 50 mg [Zoloft 50 mg Tablet] 100 mg PO DAILY 03/05/23 [History] Atorvastatin Calcium [Lipitor 20MG Tablet] 20 mg PO HS 02/10/24 [History] Spironolactone [Aldactone] 50 mg PO BID 02/10/24 [History] estradioL [Estradiol] 4 mg PO BID 02/10/24 [History] Hydrocodone/Acetaminophen [Hydrocodone-Acetamin 5-325 mg] 1 tab PO Q4-6HPRN PRN 03/20/24 [History] Hx Tetanus, Diphtheria Vaccination/Date Given: Yes Hx Influenza Vaccination/Date Given: No Hx Pneumococcal Vaccination/Date Given: No Travel Risk - Emerging Infectious Disease Are you exhibiting symptoms associated with any current EIDs: No - Review of Systems Constitutional: No Symptoms Eyes: No Symptoms Ears, Nose, & Throat: No Symptoms Respiratory: No Symptoms Cardiac: No Symptoms Abdominal/Gastrointestinal: Nausea, No Abdominal Pain, No Vomiting, No Constipation, No Appetite Changes Genitourinary Symptoms: Flank Pain Musculoskeletal: No Symptoms Skin: No Symptoms Neurological: No Symptoms Psychological: No Symptoms Endocrine: No Symptoms Hematologic/Lymphatic: No Symptoms Immunological/Allergic: No Symptoms All Other Systems: Reviewed and Negative - Past Medical History Pertinent Past Medical History: Yes Respiratory History: Asthma GI Medical History: GERD Psycho-Social History: Depression, Other Other Medical History: PTSD - Past Surgical History Past Surgical History: No - Social History Smoking Status: Never smoker Exposure to second hand smoke: Yes Drug Use: other Patient Lives Alone: No - Social Determinants of Health Will the patient participate in the screening: Yes Do you worry about a steady place to live?: No In the past 12 months,have you had to go without utilities?: No Transportation Issues: Yes Has anyone in your support network made you feel unsafe?: No Have you or anyone in your house had to go without enough: No - Nursing Vital Signs Nursing Vital Signs: Initial Vital Signs Temperature 98.1 F 03/20/24 09:15 Pulse Rate 99 H 03/20/24 09:15 Respiratory Rate 15 03/20/24 09:15 Blood Pressure 127/88 03/20/24 09:15 O2 Sat by Pulse Oximetry 97 03/20/24 09:15 Pain Scale Pain Intensity 10 - Physical Exam General Appearance: mild distress, alert, anxiety, obese Eye Exam: PERRL/EOMI, eyes nml inspection Ears, Nose, Throat Exam: normal ENT inspection, moist mucous membranes Neck Exam: normal inspection, non-tender, supple, full range of motion Respiratory Exam: normal breath sounds, lungs clear, airway intact, No chest tenderness, No respiratory distress Cardiovascular Exam: regular rate/rhythm, normal heart sounds, normal peripheral pulses Gastrointestinal/Abdomen Exam: soft, normal bowel sounds, No tenderness Rectal Exam: not done Back Exam: normal inspection, normal range of motion, CVA tenderness (Side), No vertebral tenderness Extremity Exam: normal inspection, normal range of motion, pelvis stable Neurologic Exam: alert, oriented x 3, 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 QTc is 444) Ordered Tests: Active Orders 24 hr Category Date Time Status IV Insertion STAT Care 03/20/24 09:42 Active ABDOMEN AND PELVIS W/0 CONTRAS [CT] Stat Exams 03/20/24 09:44 Completed AMYLASE Stat Lab 03/20/24 09:50 Completed CBC W DIFF Stat Lab 03/20/24 09:50 Completed CMP Stat Lab 03/20/24 09:50 Completed LIPASE Stat Lab 03/20/24 09:50 Completed UA W/RFX UR CULTURE Stat Lab 03/20/24 09:43 Ordered Medication Summary Discontinued Medications Generic Name Dose Route Start Last Admin Trade Name Freq PRN Reason Stop Dose Admin Hydromorphone HCl 0.5 mg 03/20/24 09:42 03/20/24 10:04 Hydromorphone 1 Mg/1ml Inj IV 03/20/24 09:43 0.5 mg STAT ONE Administration Hydromorphone HCl Confirm 03/20/24 10:02 Hydromorphone 1 Mg/1ml Inj Administered 03/20/24 10:03 Dose 1 mg .ROUTE .STK-MED ONE Sodium Chloride 1,000 mls @ 999 mls/hr 03/20/24 09:42 03/20/24 10:56 Sodium Chloride 0.9% 1000 Ml IV 03/20/24 10:42 Infused .Q1H1M STA Infusion Sodium Chloride Confirm 03/20/24 09:54 Sodium Chloride 0.9% 1000 Ml Administered 03/20/24 09:55 Dose 1,000 mls @ ud .ROUTE .STK-MED ONE Ketorolac Tromethamine 30 mg 03/20/24 09:42 03/20/24 09:56 Ketorolac Tromethamine 30 Mg/Ml Inj IV 03/20/24 09:43 30 mg STAT ONE Administration Ketorolac Tromethamine Confirm 03/20/24 09:54 Ketorolac Tromethamine 30 Mg/Ml Inj Administered 03/20/24 09:55 Dose 30 mg .ROUTE .STK-MED ONE Ondansetron HCl 4 mg 03/20/24 09:42 03/20/24 09:55 Ondansetron Hcl 4 Mg/2 Ml Vial IV 03/20/24 09:43 4 mg STAT ONE Administration Ondansetron HCl Confirm 03/20/24 09:53 Ondansetron Hcl 4 Mg/2 Ml Vial Administered 03/20/24 09:54 Dose 4 mg .ROUTE .STK-MED ONE Lab/Rad Data: Laboratory Result Diagrams 03/20/24 09:50 03/20/24 09:50 Laboratory Results 03/20/24 03/20/24 Range/Units 09:50 09:50 WBC 11.0 H (4.23-9.07) x10^3/uL RBC 4.00 L (4.63-6.08) x10^6/uL Hgb 12.0 L (13.7-17.5) g/dL Hct 35.9 L (40.1-51.0) % MCV 89.8 (79.0-92.2) fL MCH 30.0 (25.7-32.2) pg MCHC 33.4 (32.3-36.5) g/dL RDW 12.6 (11.6-14.4) % Plt Count 252 (163-337) x10^3/uL MPV 9.5 (9.4-12.4) fL Gran % 68.3 H (34.0-67.9) % Immature Gran % (Auto) 0.5 H (0.001-0.429) % Nucleat RBC Rel Count 0.0 (0.00-0.2) % Eos # (Auto) 0.21 (0.04-0.54) x10^3/uL Immature Gran # (Auto) 0.06 H (0.001-0.031) x10^3u/L Absolute Lymphs (auto) 2.38 (1.32-3.57) x10^3/uL Absolute Monos (auto) 0.81 (0.30-0.82) x10^3/uL Absolute Nucleated RBC 0.00 (0.00-0.012) x10^3u/L Lymphocytes % 21.6 L (21.8-53.1) % Monocytes % 7.4 (5.3-12.2) % Eosinophils % 1.9 (0.8-7.0) % Basophils % 0.3 (0.2-1.2) % Absolute Granulocytes 7.52 H (1.78-5.38) x10^3/uL Basophils # 0.03 (0.01-0.08) x10^3/uL Sodium 137 (135-145) mmol/L Potassium 3.8 (3.5-5.1) mmol/L Chloride 103 (98-107) mmol/L Carbon Dioxide 25 (22-30) mmol/L Anion Gap 13.1 (5-15) MEQ/L BUN 18 (9-20) mg/dL Creatinine 1.15 (0.66-1.25) mg/dL Estimated GFR 86.7 ML/MIN Glucose 117 H (74-106) mg/dL Calcium 9.1 (8.4-10.2) mg/dL Total Bilirubin 0.30 (0.2-1.3) mg/dL AST 27 (17-59) U/L ALT 26 (0-50) U/L Alkaline Phosphatase 67 (38-126) U/L Serum Total Protein 7.2 (6.3-8.2) g/dL Albumin 4.0 (3.5-5.0) g/dL Amylase 89 (30-110) U/L Lipase 49 (23-300) U/L - Progress Progress: improved, pain not gone completely, re-examined Progress Note: 03/20/24 09:59 Medical decision making of the assignment of moderate complexity to this patient's medical issue today is based on review of the patient's past medical history, review of the patient's medication list, review of the patient's drug allergy list, history present illness and physical findings on examination. The workup and the patient includes placement of intravenous line, infusion of normal saline solution, infusion of Zofran intravenously, infusion of Toradol intravenously, infusion of Dilaudid intravenously, CBC, CMP, amylase, lipase, urinalysis and CT scan of the abdomen pelvis without contrast. Differential diagnosis includes but is not limited to urinary tract infection, pyelonephritis, left hydronephrosis, pancreatitis, obstructive uropathy findings 03/20/24 11:34 I interpreted the patient's laboratory data results. Based on the laboratory data results, the patient has no acute, emergent medical issue. He has yet to provide us with a urine sample. I will prophylactically place him on 5 days of Cipro antibiotic. I spoke with the patient's urologist, Dr. Reynolds. He had reviewed the film results. The CT scan of the abdomen and pelvis without contrast was interpreted by our radiologist and I reviewed the impression. The impression states new left mid ureteral micro calculus producing partial obstruction, prominent left ureter with mild hydronephrosis favoring obstructive uropathy. Patient's urologist feels that this patient will be able to pass this smaller ureteral stone. He has asked me to have have the patient continue his Flomax and we will add Toradol to his pain control regimen. In addition, patient is to follow-up at [facility] in [facility] radiology department approximately 11 [phone] in the morning on 03/23/2024 to obtain a KUB. He will then follow-up in his urologist office on 03/23/2024 at 1:15 in the afternoon. Counseled pt/family regarding: lab results, diagnosis, rad results Medical Desision Making - Independent Historian Additional History obtained from: Mother - Diagnostic Testing Diagnostic test were ordered, analyzed, and reviewed by me: Yes Radiological Interpretation: Reviewed by me, Teleradiologist Report - Risk of complications The pt has a mod risk of morbidity or mortality based on: Need for prescription drug management - Departure Departure Disposition: Home Clinical Impression: Left ureteral calculus, Obstructive uropathy Condition: Stable Critical Care Time: No Referrals: GARRETT GOODSON DO [Primary Care Provider] - Follow up/PCP as directed Additional Instructions: Drink plenty of clear liquids. Continue your Flomax. Continue your [place] medication. Take your Cipro antibiotic as well as Toradol medication as prescribed. On 03/23/2024, you will proceed to the radiology department between 1130 and 11:45 in the morning to obtain a KUB x-ray study followed by proceeding to your urologist office at 1:15 PM for follow-up appointment. Prescriptions: Ciprofloxacin [Cipro 500 MG] 500 mg PO BID #10 tablet Ketorolac Trometh 10 mg Tab [TORAdol 10 MG TABLET] 10 mg PO Q6H #12 tablet
[2024-03-20 09:31] VITALS: TEMP 98.1
[2024-03-20] MEDS ORDERED: Zofran 4 MG/2 ML VIAL ONE (09:53)
[2024-03-20] MEDS: Sodium Chloride 0.9% 1000 ML 1,000 ML IV STA (09:54)
[2024-03-20] MEDS ORDERED: TORAdol 30 mg Injection ONE (09:54)
[2024-03-20] MEDS ORDERED: Sodium Chloride 0.9% 1000 ML 1,000 ML ONE (09:54)
[2024-03-20] MEDS: Zofran 4 MG/2 ML VIAL IV ONE (09:55)
[2024-03-20] MEDS: TORAdol 30 mg Injection IV ONE (09:56)
[2024-03-20 10:01] LABS: Absolute Neutrophil Ct (ANC) 7.52 x10^3/uL (1.78-5.38); BASOPHIL % 0.3 % (0.2-1.2); Basophil (Absolute #) 0.03 x10^3/uL (0.01-0.08); Eosinophil % 1.9 % (0.8-7.0); Eosinophil (Absolute #) 0.21 x10^3/uL (0.04-0.54); Hematocrit 35.9 % (40.1-51.0); IMMATURE GRAN # 0.06 x10^3u/L (0.001-0.031); IMMATURE GRAN % 0.5 % (0.001-0.429); Lymphocyte (Absolute #) 2.38 x10^3/uL (1.32-3.57); Lymphocytes % 21.6 % (21.8-53.1); Mean Cell Volume 89.8 fL (79.0-92.2); Mean Corpuscular Hgb Concent. 33.4 g/dL (32.3-36.5); Mean Platelet Volume 9.5 fL (9.4-12.4); Monocyte (Absolute #) 0.81 x10^3/uL (0.30-0.82); Monocytes % 7.4 % (5.3-12.2); Neutrophil % 68.3 % (34.0-67.9); Platelet Count 252 x10^3/uL (163-337); Red Cell Distribution Width 12.6 % (11.6-14.4)
[2024-03-20] MEDS ORDERED: Hydromorphone 1 mg/ml Injection ONE (10:02)
[2024-03-20] MEDS: Hydromorphone 1 mg/ml Injection IV ONE (10:04)
[2024-03-20 10:13] LABS: ANION GAP 13.1 MEQ/L (5-15); BILIRUBIN,TOTAL 0.3 mg/dL (0.2-1.3); Calcium 9.1 mg/dL (8.4-10.2); Creatinine 1 1.15 mg/dL (0.66-1.25); EST GLOMERULAR FILTRATION RATE 86.7 ML/MIN; Potassium 3.8 mmol/L (3.5-5.1); Total Protein 7.2 g/dL (6.3-8.2)
[2024-03-20 10:57] VITALS: O2SAT 97
--- NOTE | 2024-03-20 11:20 | XRAY ---
Indication: Left flank pain. Status post lithotripsy March 17, 2024. Multiple contiguous axial images obtained through the abdomen and pelvis without contrast using renal stone protocol. Comparison: February 10, 2024 Lung bases clear of infiltrate/effusion. Heart not enlarged. New 4 x 4 x 7 mm left mid ureteral calculus, approximately L3-L4 interspace level. Proximal left ureter is prominent along with mild hydronephrosis favors obstructive uropathy. 2-3 additional left renal micro-calculi. Noncontrasted stomach and bowel loops appear nonobstructed with normal appendix. No free fluid/air. Remaining liver, gallbladder, pancreas, spleen, adrenal glands, right kidney, right ureter, bladder, and aorta are unremarkable for noncontrast exam. Osseous structures intact. Impression: New left mid ureter micro-calculus producing partial obstruction as detailed. Additional left renal micro-calculi.
[2024-03-20 11:46] VITALS: BP 120/81; PULSE 86; RESP 15
[2024-03-20 11:48] LABS: Appearance Cloudy (Clear); Bacteria None Seen /HPF (None Seen); Bilirubin Negative (Negative); Blood Large (Negative); Epithelial Cells Moderate /HPF (None Seen); Glucose, Urine Negative (Negative); Hyaline Casts NONE SEEN /LPF (0-2); Ketones Negative (Negative); Leukocyte Esterase Small (Negative); Nitrite Negative (Negative); Protein,Urine Dip 30 (Negative); RBC 51-100 /HPF (0-5); Urobilinogen 0.2 mg/dL (0.2)
[2024-03-20] MEDS ORDERED: Levofloxacin 500 MG Tablet ONE (11:50)
[2024-03-20] MEDS: Levofloxacin 500 MG Tablet PO ONE (11:51)
== END 2024-03-20 12:01 | disposition home or self-care (01) ==
LOC: ED 09:05
DX: N13.2 Hydronephrosis with renal and ureteral calculous obstruction (principal); R10.9 Unspecified abdominal pain; E78.5 Hyperlipidemia, unspecified; Z79.891 Long term (current) use of opiate analgesic; Z79.899 Other long term (current) drug therapy; Z59.82 Transportation insecurity
CPT/HCPCS: 36415; 74176; 80053; 81001; 82150; 83690; 85025; 87086; 96374; 96375; 99284; 99285; J1171; J1885; J2405; A9270-GY